=== PATIENT | female | born 1995 | race African-American/Black ===

== ENCOUNTER 2024-12-31 12:37 | Emergency (ER) | payer MEDICAID ==
[~2024-12-31] VITALS: Ht 167.6 cm; Wt 105.0 kg
[2024-12-31 13:10] VITALS: O2SAT 100
[2024-12-31 13:33] LABS: CHLORIDE 105 mEq/L (98-107); POTASSIUM 4.2 mEq/L (3.5-5.1); SODIUM 140 mEq/L (136-145)
[2024-12-31 13:34] LABS: CALCIUM 9.1 mg/dL (8.7-10.4); CARBON DIOXIDE 26 mEq/L (21-32)
[2024-12-31 13:38] LABS: CREATININE 0.8 mg/dL (0.6-1.0)
[2024-12-31 13:39] LABS: GLUCOSE 91 mg/dL (70-105); UREA NITROGEN BLOOD 11 mg/dL (9-23)
[2024-12-31 13:40] LABS: BASOPHILS % 0.5 % (0.0-2.0); EOSINOPHILS % 1.8 % (0.0-5.0); HEMATOCRIT. 39.3 % (36.0-48.0); HEMOGLOBIN. 12.8 g/dL (12.0-16.0); LYMPHOCYTES % 33.8 % (20.0-50.0); MEAN CORPUSCULAR HEMOGLOBIN 30.2 pg (28.0-32.0); MEAN CORPUSCULAR HGB CONC 32.5 g/dL (31.0-37.0); MEAN CORPUSCULAR VOLUME 92.7 fL (81.0-99.0); MEAN PLATELET VOLUME 9.3 fl (7.4-10.4); NEUTROPHILS % 54.9 % (40.0-76.0); PLATELET 182 x1000/uL (130-400); RED BLOOD CELL COUNT 4.24 mill/uL (4.2-5.4); RED CELL DISTRIBUTION WIDTH 13.9 % (11.6-14.6); WHITE BLOOD COUNT 5.5 x1000/uL (4.5-11.0)
[2024-12-31 13:54] LABS: TROPONIN I HIGH SENSITIVITY < 4 ng/L (3.0-34)
[2024-12-31] MEDS: IBUPROFEN 800MG TABLET PO ONE (14:06)
[2024-12-31 14:50] VITALS: BP 123/71; PULSE 82; RESP 18; TEMP 36.7; O2SAT 100
== END 2024-12-31 14:55 | disposition home or self-care (01) ==
LOC: ER 12:37
DX: R07.89 Other chest pain (principal)
CPT/HCPCS: 36415; 71045; 80048; 81025; 84484; 85025; 93005; 99285; A4606